=== PATIENT | female | born 1975 | race Caucasian/White ===

== ENCOUNTER 2020-03-18 10:17 | Outpatient (CLI) | payer MEDICAID | END 2020-03-18 10:18 | disposition home or self-care (01) | LOC: COV 10:17 | PROVIDERS: ATTEND Family Medicine | DX: M79.10 Myalgia, unspecified site (principal); R53.83 Other fatigue; R19.7 Diarrhea, unspecified; Z20.828 Contact with and (suspected) exposure to other viral communicable diseases ==

== ENCOUNTER 2021-05-26 11:09 | Emergency (ER) | payer MEDICAID ==
--- NOTE | 2021-05-26 12:45 | XRAY Report ---
PROCEDURE: Left ankle x-ray INDICATIONS: Trauma TECHNIQUE: 3 views of the ankle were acquired. COMPARISON: None FINDINGS: Bones: No oblique distal fibular fracture noted with the lateral soft tissue swelling. Moderate plant ar and posterior calcaneal spurs present with plantar soft tissue calcification associated with the p lantar fascia. Soft tissues: No tibiotalar joint effusion. Achilles tendon appears normal. IMPRESSION: Oblique distal fibular fracture associated with soft tissue swelling. No radiopaque foreign body. Calcaneal spurs Reviewed by: Gabriele Hartman MD on 05/26/2021 11:44 AM ROHIT Approved by: Gabriele Hartman MD on 05/26/2021 11:44 AM ROHIT Station ID: [id number]
--- NOTE | 2021-05-26 13:41 | ED Physician Documentation ---
History of Present Illness - Stated complaint Stated Complaint: LT ANKLE INJURY - Chief complaint Chief Complaint: Ext Problem - Additonal information Additional information: 45-year-old female presents emergency department for evaluation of left ankle pain and swelling after slip and fall yesterday in which she inverted her left ankle. Unable to bear weight since. No history previous injury. 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 - Past Surgical History Past Surgical History: Yes Ortho: Shoulder arthroplasty /SALES INCENTIVE ANALYST: section, Hysterectomy - Present Medications Home Medications: Ambulatory Orders Medication Instructions Recorded Confirmed HYDROcod/ACETAM 5/325 [Davenport 5/325] 1 - 2 ea PO Q6H PRN #20 tablet 08/08/17 Promethazine [Phenergan] 25 - 50 mg PO Q6H PRN #10 tab 08/08/17 HYDROcod/ACETAM 5/325 [Davenport 5/325] 1 tablet PO BID PRN #10 tablet 05/26/21 - Allergies Allergies/Adverse Reactions: Allergies Allergy/AdvReac Type Severity Reaction Status Date / Time latex Allergy Rash Verified 05/26/21 11:35 - Social History Does the pt smoke?: Yes Smoking Status: Current every day smoker Does the pt drink ETOH?: Yes Does the pt have substance abuse?: No PD ED PE EXPANDED - Extremities Extremities: Left ankle (2+ DP pulse. Significant swelling and ecchymosis proximal to the lateral malleolus. No pain at the fifth metatarsal. Normal flexion extension though painful. No pain of the medial malleolus or the Achilles.) Results - Vitals Vitals: Vital Signs - 24 hr 05/26/21 11:36 Temperature 36.9 C Heart Rate 78 Respiratory 18 Rate Blood Pressure 157/88 H O2 Saturation 97 Oxygen O2 Source Room air - Rads (name of study) left ankle xr Radiology: Final report received (Oblique distal fibular fracture associate with soft tissue swelling. No radiopaque foreign body.) PD MEDICAL DECISION MAKING - ED course Complexity details: reviewed results, re-evaluated patient, considered differential, d/w patient ED course: 45-year-old female presents emergency department for evaluation of acute left ankle pain after mechanical slip and fall yesterday afternoon. Significant swelling ecchymosis to lateral malleoli are area. Unable to bear weight. X-ray confirms a distal left oblique fibular fracture. Patient was placed in a stirrup splint. She has her own orthopedist through the [place] clinic that she prefers to follow-up with. Limited prescription for Davenport will be levied. Emergent return precautions and splint care was discussed. Post splint application was evaluated with good [facility] T. I am prescribing a short course of short-acting opioid pain medication for this patient. I have reviewed the patients STAFFING SPECIALIST and no concerning findings were noted. I have discussed that the opioids are for short term therapy only, and will not be refilled from the ED. Departure - Departure Disposition: 01 Home, Self Care Clinical Impression: Closed left fibular fracture Qualifiers: Encounter type: initial encounter Fibula location: distal Fracture morphology: other fracture Qualified Code(s): S82.832A - Other fracture of upper and lower end of left fibula, initial encounter for closed fracture Condition: Stable Record reviewed to determine appropriate education?: Yes Instructions: ED Cast Care Fiberglass Ch, ED Fx Lower Extr Ch Follow-Up: KARUNA DAVID MD [Primary Care Provider] - Prescriptions: HYDROcod/ACETAM 5/325 [Davenport 5/325] 1 tablet PO BID PRN #10 tablet PRN Reason: Pain Comments: Samanthaandrei mcghee the x-ray confirms that you have a closed oblique distal fibular fracture on your left side. You have been placed in a temporary fib erglass splint. This cannot get wet. You are to continue to be nonweightbearing and use the crutches until seen by your orthopedist. I do recommend Tylenol in general for discomfort though I am prescribing a very limited amount of hydrocodone. This has been sent to the [facility] pharmacy just across the street. If at any point you develop fevers, have sudden shortness of breath, fevers or concerns with your splint then please return immediately to the ER I am prescribing a short course of narcotic pain medication for you. These are potentially dangerous and addictive medications that should be used carefully. These medications may constipate you. Take an [id number] stool softener (docusate) twice daily with plenty of water while taking these medications. If you go 24 hours without a bowel movement, take [id number] miralax, per package instructions. Do not drink or drive while taking these medications. If you received narcotic or sedating medications while in the emergency department, do not drive for 24 hours. Store this medication in a safe, secure place and out of reach of children. It is a violation of federal law to give or sell this medication to another person or to use in a manner other than prescribed. The ED will not refill narcotic prescriptions, including prescriptions lost or stolen. To dispose of unwanted medications: 1. [facility] [address] in [place] has a medication drop box. They accept prescription medications (in pill form) Saturday through Saturday 9:00 a.m. to 5:00 p.m. 2. The [facility] [employer] accepts prescription medications (in pill form only) for disposal year round. Call for more information. 3. Contact the [facility] for the next [facility] sponsored prescription drug collection event. , [phone], or [phone]; Note that many narcotic pain relievers also contain Tylenol/acetaminophen. Please ensure that your total dose of acetaminophen from all sources does not exceed 3 g (3000 mg) per day.
[2021-05-26 14:20] VITALS: BP 156/81
== END 2021-05-26 14:20 | disposition home or self-care (01) ==
LOC: ED 11:09
DX: S82.432A Displaced oblique fracture of shaft of left fibula, initial encounter for closed fracture (principal); W01.0XXA Fall on same level from slipping, tripping and stumbling without subsequent striking against object, initial encounter; F17.200 Nicotine dependence, unspecified, uncomplicated
CPT/HCPCS: 99281; 99283

== ENCOUNTER 2022-12-15 07:00 | Outpatient (CLI) | payer MEDICAID ==
--- NOTE | 2022-12-15 15:38 | XRAY Report ---
PROCEDURE: Chest 2 View X-Ray INDICATIONS: CHEST PAIN RIGHT TECHNIQUE: 2 views of the chest were acquired. COMPARISON: None. FINDINGS: Surgical changes and devices: None. Lungs and pleura: No pleural effusions or pneumothorax. Lungs are clear. Mediastinum: Mediastinal contours appear normal. Heart size is normal. Bones and chest wall: No suspicious bony lesions. Overlying soft tissues appear unremarkable. IMPRESSION: No acute process. Reviewed by: Kalina Rivas MD on 12/15/2022 2:37 PM ROHIT Approved by: Kalina Rivas MD on 12/15/2022 2:37 PM AKDT Station ID: [id number]
== END 2022-12-15 23:59 | disposition home or self-care (01) ==
LOC: DI.S 07:00
PROVIDERS: ATTEND Physician Assistant
DX: R07.89 Other chest pain (principal)

== ENCOUNTER 2023-05-23 13:20 | Outpatient (CLI) | payer MEDICAID ==
[2023-05-23 18:24] LABS: ALBUMIN/GLOBULIN RATIO 1.2 (1.0-2.2); BILIRUBIN,TOTAL 0.4 mg/dL (0.2-1.0); CALCIUM 9.8 mg/dL (8.5-10.3); CREATININE 0.7 mg/dL (0.6-1.3); POTASSIUM 4.4 mmol/L (3.5-4.5); TOTAL PROTEIN 7.4 g/dL (6.4-8.9)
== END 2023-05-23 13:21 | disposition home or self-care (01) ==
LOC: LAB.N 13:20
PROVIDERS: ATTEND Internal Medicine
DX: R60.0 Localized edema (principal)
CPT/HCPCS: 36415; 80053

== ENCOUNTER 2023-06-14 11:20 | Outpatient (CLI) | payer MEDICAID ==
--- NOTE | 2023-06-14 12:11 | XRAY Report ---
PROCEDURE: Chest 2 View X-Ray INDICATIONS: PEDAL EDEMA TECHNIQUE: 2 views of the chest were acquired. COMPARISON: Chest x-ray 12/15/2022. FINDINGS: Surgical changes and devices: None. Lungs and pleura: No pleural effusions or pneumothorax. Lungs are clear. Mediastinum: Mediastinal contours appear normal. Heart size is normal. Bones and chest wall: No suspicious bony lesions. Overlying soft tissues appear unremarkable. IMPRESSION: No acute cardiopulmonary process. Reviewed by: Parvez Humphries MD on 06/14/2023 12:10 PM PST Approved by: Parvez Humphries MD on 06/14/2023 12:10 PM PST Station ID: [id number]
== END 2023-06-14 11:21 | disposition home or self-care (01) ==
LOC: DI.S 11:20
PROVIDERS: ATTEND Internal Medicine
DX: R60.0 Localized edema (principal)

== ENCOUNTER 2024-03-06 10:58 | Outpatient (CLI) | payer MEDICAID ==
--- NOTE | 2024-03-06 15:03 | XRAY Report ---
PROCEDURE: Cervical Spine w/Flex/Ext 6+V INDICATIONS: ARTHROPATHY TECHNIQUE: 7 views of the cervical spine were acquired. COMPARISON: None. FINDINGS: Bones: No fractures or dislocations to the C7 level. No suspicious bony lesions. Grade 1 retrolist hesis of C4 on C5, stable in flexion and extension. Moderate disc height loss at all levels. Diffuse facet arthrosis. There is normal range of motion between flexion and extension, with preserved bony a lignment. Soft tissues: Prevertebral soft tissues are normal in thickness. Nuchal calcifications. IMPRESSION: Moderate, multilevel degenerative disc disease and diffuse facet arthrosis. Reviewed by: Hilario Blanco MD on 03/06/2024 3:02 PM PDT Approved by: Hilario Blanco MD on 03/06/2024 3:02 PM PDT Station ID: [id number]
--- NOTE | 2024-03-06 15:06 | XRAY Report ---
PROCEDURE: Shoulder 2+V RT INDICATIONS: RT SHOULDER PAIN TECHNIQUE: 3 views of the shoulder were acquired. COMPARISON: None. FINDINGS: Bones: No fractures or dislocations. No suspicious bony lesions. Visualized ribs appear intact. [place] spected distal clavicle resection. Mild glenohumeral joint space narrowing and osteophytic lipping. Soft tissues: No suspicious soft tissue calcifications. The visualized lungs are within normal limi ts. IMPRESSION: No acute bony abnormality. Mild glenohumeral osteoarthritis. Suspected distal clavicle resection. Reviewed by: Hilario Blanco MD on 03/06/2024 3:05 PM PDT Approved by: Hilario Blanco MD on 03/06/2024 3:05 PM PDT Station ID: [id number]
--- NOTE | 2024-03-06 15:12 | XRAY Report ---
PROCEDURE: Foot 3+V BL INDICATIONS: FOOT PAIN TECHNIQUE: 3 views of the feet were acquired. COMPARISON: None. FINDINGS: Bones: No fractures or dislocations. No suspicious bony lesions. Pes planus. Bulky calcaneal enthe sophytes and calcifications within the plantar fascia. Midfoot osteoarthritis. Soft tissues: No tibiotalar joint effusion. Achilles tendon appears normal. IMPRESSION: Pes planus. Bulky calcaneal enthesophytes and calcific plantar fasciitis. Reviewed by: Hilario Blanco MD on 03/06/2024 3:11 PM PDT Approved by: Hilario Blanco MD on 03/06/2024 3:11 PM PDT Station ID: [id number]
[2024-03-06 16:33] LABS: CRP - C-REACTIVE PROTEIN < 0.5 mg/dL (<0.5); URIC ACID 4.8 mg/dL (2.3-6.6)
== END 2024-03-06 10:59 | disposition home or self-care (01) ==
LOC: DI.S 10:58
PROVIDERS: ATTEND Internal Medicine
DX: M47.812 Spondylosis without myelopathy or radiculopathy, cervical region (principal); M50.31 Other cervical disc degeneration, high cervical region; M19.011 Primary osteoarthritis, right shoulder; M19.071 Primary osteoarthritis, right ankle and foot; M19.072 Primary osteoarthritis, left ankle and foot; M21.42 Flat foot [pes planus] (acquired), left foot; M21.41 Flat foot [pes planus] (acquired), right foot; M35.3 Polymyalgia rheumatica; M72.2 Plantar fascial fibromatosis; M77.52 Other enthesopathy of left foot and ankle; M77.51 Other enthesopathy of right foot and ankle
CPT/HCPCS: 36415; 81374; 84550; 85651; 86140